=== PATIENT | male | born 1970 | race African-American/Black ===

== ENCOUNTER 2019-07-18 10:25 | Inpatient (IN) | payer MEDICAID, OTHER ==
[~2019-07-18] VITALS: Ht 182.9 cm; Wt 86.2 kg
[~2019-07-18 10:25] MED LIST: HYDR25TA PO; L25 PO; LOSA100T3 PO; Thiamine Hcl PO
[2019-07-18] MEDS ORDERED: KETOROLAC 30MG/ML VIAL IV ONE (11:30)
[2019-07-18] MEDS ORDERED: METOCLOPRAMIDE HCL 10MG/2ML VIAL IV ONE (11:30)
[2019-07-18 11:47] LABS: HEMOGLOBIN. 15.3 g/dL (14.0-18.0); MEAN CORPUSCULAR HEMOGLOBIN 33.6 pg (28.0-32.0); MEAN CORPUSCULAR VOLUME 98.5 fL (80.0-94.0); MEAN PLATELET VOLUME 8.3 fl (7.4-10.4); PLATELET 316 x1000/uL (130-400); RED BLOOD CELL COUNT 4.57 mill/uL (4.7-6.1); RED CELL DISTRIBUTION WIDTH 14.1 % (11.6-14.6)
[2019-07-18 11:52] LABS: CHLORIDE 108 mEq/L (98-107)
[2019-07-18] MEDS ORDERED: ASPIRIN 325MG EC TABLET PO ONE (12:15)
[2019-07-18 12:20] LABS: PLATELET ESTIMATE NORMAL
[2019-07-18] MEDS ORDERED: HYDRALAZINE 20MG/ML VIAL IV PRN (17:30)
[2019-07-18] MEDS ORDERED: ONDANSETRON HCL 4MG/2ML INJ IV PRN (17:30)
[2019-07-18] MEDS ORDERED: NA PHOS,M-B/NA PHOS,DI-BA ENEMA 118ML PR PRN (17:30)
[2019-07-18] MEDS ORDERED: ACETAMINOPHEN 325MG TABLET PO PRN (17:30)
[2019-07-18] MEDS ORDERED: GUAIFENESIN 200MG/10ML SUGAR FREE UDC PO PRN (17:30)
[2019-07-18] MEDS ORDERED: IPRATROPIUM/ALBUTEROL 0.5-3(2.5)MG/3ML NEB HHN PRN (17:30)
[2019-07-18] MEDS ORDERED: LORAZEPAM 2MG/ML CPJ IV PRN (17:30)
[2019-07-18] MEDS ORDERED: DOCUSATE SODIUM 100MG CAPSULE PO PRN (17:30)
[2019-07-18] MEDS ORDERED: MAGNESIUM/ALUMINUM HYDROXIDE/SIMETHICONE 30ML UDC PO PRN (17:30)
[2019-07-18] MEDS ORDERED: DIPHENHYDRAMINE 50MG/ML VIAL IV PRN (17:30)
[2019-07-18] MEDS ORDERED: HYDROCODONE/ACETAMINOPHEN 10/325MG TABLET PO PRN (19:05)
[2019-07-18] MEDS ORDERED: MORPHINE SULFATE 2 MG/ML CPJ (NOT FOR IM USE) IV PRN (19:06)
[2019-07-18] MEDS: CLONIDINE 0.1MG TABLET PO PRN (20:28)
[2019-07-18 21:20] VITALS: BP 146/95
[2019-07-18] MEDS: SODIUM CHLORIDE 0.9% INJ 3ML FLUSH IVF SCH (22:55)
[2019-07-18 23:55] LABS: CREATINE KINASE 223 IU/L (39-308)
[2019-07-18 23:56] LABS: CREATINE KINASE MB FRACTION 1.6 ng/mL (0.5-3.6)
[2019-07-19] VITALS: BP 150/102
[2019-07-19 04:00] VITALS: BP 147/97
[2019-07-19] MEDS: SODIUM CHLORIDE 0.9% INJ 3ML FLUSH IVF SCH ×2 (05:21→15:02)
[2019-07-19] MEDS: CLONIDINE 0.1MG TABLET PO PRN (05:21)
[2019-07-19 06:41] LABS: HEMATOCRIT. 42.1 % (42.0-52.0); HEMOGLOBIN. 14.3 g/dL (14.0-18.0); MEAN CORPUSCULAR HEMOGLOBIN 33.3 pg (28.0-32.0); MEAN CORPUSCULAR VOLUME 98.4 fL (80.0-94.0); MEAN PLATELET VOLUME 8.6 fl (7.4-10.4); PLATELET 300 x1000/uL (130-400); RED BLOOD CELL COUNT 4.28 mill/uL (4.7-6.1); RED CELL DISTRIBUTION WIDTH 13.7 % (11.6-14.6)
[2019-07-19 06:53] LABS: CHLORIDE 109 mEq/L (98-107)
[2019-07-19 07:01] LABS: HDL CHOLESTEROL 32 mg/dL (40-59); LDL CHOLESTEROL 50 mg/dL (5-100)
[2019-07-19 07:02] LABS: CREATINE KINASE 189 IU/L (39-308); CREATINE KINASE MB FRACTION 1.4 ng/mL (0.5-3.6)
[2019-07-19 07:03] LABS: T4 FREE 1.16 ng/dL (0.76-1.46)
[2019-07-19 08:00] VITALS: BP 147/102
[2019-07-19] MEDS ORDERED: ENOXAPARIN 40MG/0.4ML SYR SUBCUT SCH (09:00)
[2019-07-19] MEDS ORDERED: ASPIRIN 81MG EC TABLET PO SCH (09:00)
[2019-07-19 11:48] LABS: *AMPHETAMINES SCREEN URINE NEGATIVE (NEGATIVE)
[2019-07-19 11:49] LABS: *BARBITURATES SCREEN URINE NEGATIVE (NEGATIVE); *BENZODIAZEPINES SCREEN URINE NEGATIVE (NEGATIVE); *COCAINE SCREEN URINE NEGATIVE (NEGATIVE); METHADONE URINE SCREEN NEGATIVE (NEGATIVE); OPIATES URINE SCREEN NEGATIVE (NEGATIVE); PHENCYCLIDINE URINE SCREEN NEGATIVE (NEGATIVE)
[2019-07-19 11:50] LABS: CANNABINOID URINE SCREEN NEGATIVE (NEGATIVE)
[2019-07-19 11:51] LABS: PLATELET ESTIMATE NORMAL
[2019-07-19 12:00] VITALS: BP 129/92
[2019-07-19] MEDS ORDERED: AMLODIPINE 5MG TABLET PO SCH (15:45)
== END 2019-07-19 18:20 | disposition home or self-care (01) | DRG 199 ==
LOC: ER 10:25 → 6WST 13:34 → EDBEDREQTM 13:39 → ENRESERV 20:50
PROVIDERS: ADMIT Internal Medicine; ATTEND Internal Medicine
DX: I16.0 Hypertensive urgency (principal); E87.8 Other disorders of electrolyte and fluid balance, not elsewhere classified; R07.89 Other chest pain; M94.0 Chondrocostal junction syndrome [Tietze]; F14.11 Cocaine abuse, in remission; F17.210 Nicotine dependence, cigarettes, uncomplicated; G47.33 Obstructive sleep apnea (adult) (pediatric); I10 Essential (primary) hypertension; Z79.899 Other long term (current) drug therapy; Z79.82 Long term (current) use of aspirin
CPT/HCPCS: 36415; 71045; 80053; 80061; 80305; 82550; 82553; 83880; 84439; 84443; 84484; 85025; 93005; 93970; 99285; J0360; J1650; J1885; J2765

== ENCOUNTER 2020-01-21 16:08 | Emergency (ER) | payer SELFPAY ==
[~2020-01-21] VITALS: Ht 182.9 cm; Wt 85.0 kg
[2020-01-21] MEDS ORDERED: SODIUM CHLORIDE 0.9% 1,000 ML IV ONE (17:00)
[2020-01-21 17:19] LABS: BASOPHILS % 0.6 % (0.0-2.0); EOSINOPHILS % 4.5 % (0.0-5.0); HEMATOCRIT. 44.4 % (42.0-52.0); HEMOGLOBIN. 15.3 g/dL (14.0-18.0); MEAN CORPUSCULAR HEMOGLOBIN 33.6 pg (28.0-32.0); MEAN CORPUSCULAR VOLUME 97.8 fL (80.0-94.0); MEAN PLATELET VOLUME 8.1 fl (7.4-10.4); MONOCYTES % 10.5 % (2.0-8.0); NEUTROPHILS % 48.4 % (40.0-76.0); PLATELET 227 x1000/uL (130-400); RED BLOOD CELL COUNT 4.54 mill/uL (4.7-6.1); RED CELL DISTRIBUTION WIDTH 14.5 % (11.6-14.6)
[2020-01-21 17:24] LABS: CHLORIDE 100 mEq/L (98-107)
[2020-01-21 18:49] LABS: *AMPHETAMINES SCREEN URINE NEGATIVE (NEGATIVE); *BARBITURATES SCREEN URINE NEGATIVE (NEGATIVE)
[2020-01-21 18:50] LABS: *BENZODIAZEPINES SCREEN URINE NEGATIVE (NEGATIVE); *COCAINE SCREEN URINE NEGATIVE (NEGATIVE); OPIATES URINE SCREEN NEGATIVE (NEGATIVE); PHENCYCLIDINE URINE SCREEN NEGATIVE (NEGATIVE)
[2020-01-21 18:51] LABS: CANNABINOID URINE SCREEN NEGATIVE (NEGATIVE)
[2020-01-21 18:52] LABS: METHADONE URINE SCREEN NEGATIVE (NEGATIVE)
[2020-01-21] MEDS ORDERED: CHLORDIAZEPOXIDE 25MG CAPSULE PO ONE (19:30)
[2020-01-21] MEDS ORDERED: AMLODIPINE 10MG TABLET PO NR (20:00)
[2020-01-21] MEDS ORDERED: CLONIDINE 0.2MG TABLET PO NR (20:00)
[2020-01-22] MEDS ORDERED: LORAZEPAM 2MG/ML CPJ IV ONE ×2 (03:30→10:15)
[2020-01-22 11:35] VITALS: BP 152/97
== END 2020-01-22 11:41 | disposition home or self-care (01) ==
LOC: ER 16:08
DX: I10 Essential (primary) hypertension (principal); F10.20 Alcohol dependence, uncomplicated; Y90.8 Blood alcohol level of 240 mg/100 ml or more; R45.851 Suicidal ideations
CPT/HCPCS: 36415; 71045; 80053; 80305; 80320; 83880; 84484; 85025; 96374; 96376; 99285; J2060; J7030; Z7610; G0480

== ENCOUNTER 2025-02-09 18:31 | Emergency (ER) | payer OTHER ==
[~2025-02-09] VITALS: Ht 188 cm; Wt 90.0 kg
[2025-02-09 18:42] VITALS: O2SAT 99
[2025-02-09 19:50] VITALS: BP 102/71; PULSE 71; RESP 18; TEMP 36.9; O2SAT 99
== END 2025-02-09 19:50 | disposition left against medical advice (07) ==
LOC: ER 18:31
DX: F10.129 Alcohol abuse with intoxication, unspecified (principal); R07.89 Other chest pain; I25.2 Old myocardial infarction; I11.0 Hypertensive heart disease with heart failure; I50.9 Heart failure, unspecified; E78.00 Pure hypercholesterolemia, unspecified; F14.90 Cocaine use, unspecified, uncomplicated; Y90.9 Presence of alcohol in blood, level not specified
CPT/HCPCS: 99283